=== PATIENT | female | born 1980 | race African-American/Black ===

== ENCOUNTER 2021-07-04 15:36 | Emergency (ER) | payer SELFPAY ==
[~2021-07-04] VITALS: Ht 165.1 cm; Wt 56.8 kg
[2021-07-04 15:39] VITALS: BP 145/80
[2021-07-04] MEDS ORDERED: AMOXICILLIN/K CLAV 875/125MG TABLET. PO ONE (16:15)
[2021-07-04] MEDS ORDERED: traMADol 50 MG TABLET PO ONE (16:15)
--- NOTE | 2021-07-04 16:19 | PHYS DOC ---
General Adult EDM: Chief Complaint: DENTAL PROBLEM HPI: HPI: Patient is a 40 year old female who presents with 1 week history of dental pain. Patient states she had her front tooth last week, which is when her pain started. She states she has been "dealing with it," but it has become unbearable. Patient denies facial swelling, discharge from the affected area, fever, chills, generalized weakness. Review of Systems: Review of Systems: Constitutional: See HPI Eyes: Denies change in visual acuity, visual field deficits or discharge HENT: See HPI Respiratory: Denies cough or shortness of breath Cardiovascular: Denies chest pain, palpitations or edema GI: Denies abdominal pain, nausea, vomiting, bloody stools or diarrhea : Denies dysuria or hematuria Musculoskeletal: Denies back pain or joint pain Integument: Denies rash or other skin lesion Neurologic: Denies headache, focal weakness or sensory changes Heart Score: C/O Chest Pain: No Allergies: Allergies: Allergies Coded Allergies Type Severity Reaction Last Updated Verified doxycycline Allergy Unknown rash 07/04/21 Yes hydromorphone Allergy Unknown Itching 07/04/21 Yes latex Allergy Unknown rash 07/04/21 Yes Physical Exam: PE: Constitutional: Well developed, well nourished, no acute distress, non-toxic appearance. HENT: Normocephalic, atraumatic, bilateral external ears normal, oropharynx moist, no oral exudates, poor dentition with multiple caries and severe gingivitis, no abscesses or purulent drainage appreciated, nose normal. Eyes: EOMI, conjunctiva normal, no discharge. Neck: Normal range of motion, no tenderness, supple. Cardiovascular: Heart rate regular rhythm, no murmur. Skin: Warm, dry, no erythema, no rash. Neurologic: Alert and oriented x4, no focal deficits noted. Course & Med Decision Making: Course & Med Decision Making Pertinent Labs and Imaging studies reviewed. (See chart for details) Patient is a 40-year-old female who presents with dental pain. At this time, she does not have an abscess. Patient was provided with medication for pain control, antibiotics and referral to dental clinics for low income/uninsured individuals. I explained to the patient that dental infections have high risk of spreading to cardiac infections and septicemia, so it is important that she take her full course of antibiotics and obtain follow-up. All of her questions were answered. Patient understands and is agreeable to discharge plan. Gifty Disclaimer: Gifty Disclaimer: This electronic medical record was generated, in whole or in part, using a voice recognition dictation system. Departure Departure Impression: Primary Impression: Dental caries Additional Impression: Poor dentition requiring referral to dentistry Disposition: HOME / SELF CARE / HOMELESS Condition: STABLE Patient Instructions: Dental Caries, Dental Pain, [id number] Additional Instructions: EMERGENCY DEPARTMENT GENERAL DISCHARGE INSTRUCTIONS Thank you for coming to [facility] Emergency Department (ED) today and trusting us with you care. We trust that you had a positive experience in our Emergency Department. If you wish to speak to the department management, you may call the director at . YOUR FOLLOW UP INSTRUCTIONS ARE FOLLOWS: 1. Follow up with your primary care doctor. If you do not have a primary doctor, please ask for a resource list of physicians or clinics that may be able to assist you with follow up care. 2. The emergency provider has interpreted your imaging studies, if any were ordered. The radiology automation controls specialist also reviewed them. If there is a change in the findings, you will be notified in 48 hours when at all possible. 3. If a lab test or culture has been done, your results will be reviewed and you will be notified if you need a change in treatment. 4. Follow instructions verbalized to you and refer to the printouts if needed. ADDITIONAL INSTRUCTIONS AND INFORMATION: 1. Your care today has been supervised by a physician who is specially trained in emergency care. Many problems require more than one evaluation for a complete diagnosis and treatment. We recommend that you schedule your follow up appointment as recommended to ensure complete treatment of you illness or injury. If you are unable to obtain follow up care and continue to have a problem, or if your condition worsens, we recommend that you return to the ED. 2. We are not able to safely determine your condition over the phone nor are we able to give sound medical advice over the phone. For these safety reasons, if you call for medical advice we will ask you to come to the ED for further evaluation. 3. If you have any questions regarding these discharge instructions please call the ED at . SAFETY INFORMATION: In the interest of safety, wellness, and injury prevention; we encourage you to wear your seat belt, if you smoke; quite smoking, and we encourage family to use a protective helmet for bicycling and other sporting events that present an increased risk for head injury. IF YOUR SYMPTOMS WORSEN OR NEW SYMPTOMS DEVELOP, OR YOU HAVE CONCERNS ABOUT YOUR CONDITION; OR IF YOUR CONDITION WORSENS WHILE YOU ARE WAITING FOR YOUR FOLLOW UP APPOINTMENT; EITHER CONTACT YOUR PRIMARY CARE DOCTOR, THE PHYSICIAN WHOSE NAME AND NUMBER YOU WERE GIVEN, OR RETURN TO THE ED IMMEDIATELY. Scripts Tramadol Hcl (TRAMADOL HCL) 50 Mg Tablet 50 MG PO Q6HRS PRN for PAIN for 3 Days, #12 TAB Prov: SHIRIN DEL RIO 07/04/21 Amoxicillin/Potassium Clav (AMOX TR-K CLV 875-125 MG TAB) 1 Each Tablet 1 TAB PO BID, #19 TAB Prov: SHIRIN DEL RIO 07/04/21 SHIRIN DEL RIO Jul 04, 2021 16:19
[2021-07-04] MEDS ORDERED: TRAM50TA PO (16:24)
[2021-07-04] MEDS ORDERED: AMOX1TAB11 PO (16:24)
== END 2021-07-04 16:40 | disposition home or self-care (01) ==
LOC: ER 15:36
DX: K02.9 Dental caries, unspecified (principal); K00.7 Teething syndrome; Z88.1 Allergy status to other antibiotic agents; Z88.5 Allergy status to narcotic agent; Z91.040 Latex allergy status
CPT/HCPCS: 99283